=== PATIENT | female | born 1980 | race Caucasian/White ===

== ENCOUNTER 2022-05-20 10:42 | Observation (INO) ==
--- NOTE | 2022-05-10 08:35 | Anesthesiology Consultation ---
Date of Service May 10, 2022 Assessment & Plan (1) Encounter for pre-operative examination: - COVID screening: Per assessment on 05/02: No known COVID-19 positive contacts or current COVID-19 related symptoms. Travel screen negative x2+ weeks. Patient was Covid positive 04/08/22 (home test), PCR test positive 04/14/22 (reports scanned into [email or web address]). Symptoms at time: fatigue, "feverish", chills, congestion > resolved. Pt can proceed as scheduled without additional preop Covid testing or additional Covid contact precautions per 90 days protocol. - Check test AM DOS Chart Review Chart Review: Acceptable Risk for Surgery and Patient NOT seen in Pre Admission Testing History Surgery Operation Date: 05/20/22 09:50 Proposed Procedures p Cystoscopy, Laparoscopic Removal of the Uterus and Both Fallopain Tubes, Possible Removal of One or Both Ovaries (If Indicated) - Irish Tyler MD, FACOG Height/Weight Height: 5 ft 6 in Weight: 67.132 kg Allergies Allergy/AdvReac Type Severity Reaction Status Date / Time Sulfa (Sulfonamide Allergy Mild Nausea Verified 05/06/22 09:18 Antibiotics) chloraprep AdvReac Mild Rash Uncoded 05/10/22 08:31 Medications Home Medications Medication Instructions Recorded Confirmed Last Taken ibuprofen 600 mg tablet 600 mg PO TID PRN Pain 01/31/22 05/06/22 Unknown levonorgestrel 20 mcg/24 hours (7 20 mcg intrauterine DAILY 01/31/22 05/06/22 Unknown yrs) 52 mg intrauterine device (Mirena) Past Medical History Medical History (Updated 05/10/22 @ 08:33 by Estefany Childress) Bulging lumbar disc L5-S1 Follows Dr. Harris History of COVID-19 Covid positive 04/08/22 (home test), PCR test positive 04/14/22 (reports scanned into [email or web address]). Symptoms at time: fatigue, "feverish", chills, congestion > resolved. Uterine leiomyoma Past Family History Family History Denies family history of Ovarian cancer Breast cancer Colorectal cancer Past Surgical History Surgical History H/O LEEP 21 yrs old Hx of wisdom tooth extraction Social History Smoking Status: Never smoker Do You Dip or Chew Tobacco: No Hx Alcohol Use: Yes Alcohol type: beer, wine and hard liquor alcohol intake frequency: a few times a month Hx Substance Use: No substance use type: does not use Lab Results Anesthesia Preop Results Results Anesthesia Widget: WBC 7.47 K/ul (4.8-10.8) 05/06/22 Hgb 14.0 g/dl (12.0-16.0) 05/06/22 Hct 42.5 % (34.1-44.9) 05/06/22 Plt 356 K/uL (130-400) 05/06/22 Na 139 mmol/L (136-145) 05/06/22 K 4.6 mmol/L (3.5-5.1) 05/06/22 Cl 106 mmol/L (98-107) 05/06/22 CO2 26 mmol/L (21-32) 05/06/22 BUN 10 mg/dl (6-23) 05/06/22 Creat 0.71 mg/dl (0.6-1.2) 05/06/22 Glucose Level 90 mg/dl (70-99(Fasting)) 05/06/22
[~2022-05-20 10:42] MED LIST: ACETAMINOPHEN 1000 MG/100 ML IV IV ONE; LACTATED RINGER'S 1,000 ML IV SCH; LR 15ML/HR IV SCH; PHENAZOPYRIDINE HCL 100 MG TAB PO SCH; SUGAMMADEX SODIUM 200 MG/2 ML VIAL IV ONE; ceFAZolin 2000MG 2,000 MG/15 ML SYR IV SCH
[2022-05-20] MEDS ORDERED: MIDAZOLAM HCL 1 MG/ML 2ML VIAL ONE (10:56)
[2022-05-20] MEDS ORDERED: fentaNYL citrate 100 MCG/2 ML VIAL ONE ×3 (10:56→15:42)
[2022-05-20] MEDS ORDERED: PROPOFOL IV EMULSION 10 MG/ML 20 ML VIAL IV ONE (11:50)
[2022-05-20] MEDS ORDERED: DEXAMETHASONE SOD INJ 4 MG/ML VIAL ONE (11:50)
[2022-05-20] MEDS ORDERED: ONDANSETRON INJ 2 MG/ML 2 ML VIAL ONE (11:50)
[2022-05-20] MEDS ORDERED: ROCURONIUM BROMIDE 10 MG/ML 5 ML VIAL IV ONE ×4 (11:50→15:07)
[2022-05-20] MEDS ORDERED: KETOROLAC 30 MG/ML VIAL ONE (11:50)
[2022-05-20] MEDS ORDERED: LIDOCAINE 2% MPF LOCAL 5 ML VIAL INFIL ONE (11:50)
[2022-05-20] MEDS ORDERED: SCOPOLAMINE 1 MG TDSY TD ONE (11:59)
[2022-05-20] MEDS ORDERED: ATROPINE SULFATE 0.1 MG/ML 10ML SYR IV PRN (12:00)
[2022-05-20] MEDS ORDERED: ePHEDrine sulfate 50 MG/ML AMP IV PRN (12:00)
[2022-05-20] MEDS ORDERED: ONDANSETRON INJ 2 MG/ML 2 ML VIAL IV PRN ×3 (12:00→20:15)
--- NOTE | 2022-05-20 12:23 | History & Physical Bridge Note ---
Date of Service May 20, 2022 History & Physical Bridge Note I have examined the patient, reviewed the History & Physical and in the interval since the performance of the History & Physical I have noted the following changes of clinical significance: possible supra cervical hysterectomy
[2022-05-20] MEDS ORDERED: BUPIVACAINE 0.5 % 5 MG/1 ML MPF 30ML VIAL ONE (13:03)
[2022-05-20] MEDS ORDERED: PHENYLEPHRINE 100MCG/ML 5ML SYR ONE (13:25)
[2022-05-20] MEDS ORDERED: TISSEEL FIBRIN SEALANT 4ML TOP ONE (13:50)
[2022-05-20] MEDS ORDERED: ePHEDrine sulfate 50 MG/ML SYR ONE (13:56)
[2022-05-20] MEDS ORDERED: oxyCODONE/ACETAMINOPHEN 5mg/325mg TAB PO PRN ×2 (15:35)
[2022-05-20] MEDS ORDERED: IBUPROFEN 600 MG TAB PO PRN (15:35)
--- NOTE | 2022-05-20 15:41 | Operative Report ---
PG Post Operative Report Pre & Post Diagnosis Operation Date: 05/20/22 12:10 Pre-Op Diagnosis: Uterine Fibroid Post-Op Diagnosis: Uterine Fibroid I identified the patient and participated in the time-out.: Yes Procedure Operation Date: 05/20/22 12:10 Actual Procedures p Robotic Assisted Laparoscopic Supracervical Hysterectomy, Bilateral Salpingectomy using Excite Procedure, Cystoscopy, Removal Intrauterine device(Not Applicable) - Irish Tyler MD, FACOG Surgeon Irish Tyler MD, FACOG Powdered Sugar Pulverizer Operator Dr Herrera Estimated Blood Loss 15 Findings Consistent with Post-Op Diagnosis Specimens Uterus bilateral fallopian tubes Description of Procedure Patient was given a general anesthetic, prepped and draped in dorsal lithotomy position in yellow fin monica stirrups. Care was taken to position the legs and arms properly with no excess pressure on any area. Pre-operative antibiotics were given and SCDs applied earlier. Villa catheter was inserted into her bladder, V-Care manipluator was placed in the uterus. IUD was extracted from the lower uterine segment. Gloves were changed and then a supra-umbilical incision was made with scalpel, using Marilee technique, we dissected through the subcutaneous fat, fascia, split the rectus muscles and then entered the peritoneal cavity. Blunt tip Marilee Trochar then inserted and balloon inflated to stabilize the port. CO2 gas was then used to insufflate the peritoneal cavity. Findings. Benign-appearing massively enlarged fibroid uterus Deep tendelenberg position was obtained. 2 robotic ports were then placed, one on the left, one on the right side under direct visualization. 11mm bladeless accessory port placed in left upper quadrant under direct visualization. Robot docked. Arm #1 Bipolar fenestrated, arm #3 Monopolar Chrissy. Fallopian tubes were identified and removed using the monoplar chrissy to dissect them away from their attachments and removed thru the accessory port. Ureter was identified on each side and followed a normal course. Distal to the left ovary, the blood supply was coagulated with the bipolar fenestrated and then cut with Chrissy. We were well away from the ureter. Round ligament was coagulated and then cut. Uterine vessels were then skeletonized, bladder flap was sharply dissected away with chrissy. Uterine vessels were then coagulated close to the cervix staying away from the left ureter. Vessels then cut. Exact same process was repeated on the right side taking note of the location of the right ureter. Cervical amputation was then performed with the monopolar chrissy using judicious energy, we left ample amount of cervical stump specimen was placed in the upper quadrant Instrument exchange then occurred. Arm #1Cobra Grasper, Arm # 3 became the LUIS needle passenger coach driver. 12 inch 2-0 V-Lock 90 day suture was placed through the accessory port. stump was closed from left to right, then back taking at least 1cm full thickness bites of cervix. Suture was cut so there was no tail, needle removed through the accessory port. Generous irrigation and suction, hemostasis excellent, Tisseal applied to pedicles. Cystoscopy performed and no injury to the bladder, no sutures noted, good strong jets were noted from both right and left ureter openings. Cystoscope removed, bladder drained. Robot undocked, instruments removed the umbilical port was removed and a 15 mm umbilical port was placed large surgical bag was then placed in the peritoneal cavity specimen was grasped that is the supracervical uterine specimen and placed into the bag bag was then brought to the umbilicus Jeramie retractor was then placed we then performed the excite procedure taking care not to perforate the bag and removing the specimen while confined in the bag maintaining the pneumoperitoneum. After bringing it out and multiple strips the entire specimen was removed it was done using several scalpels and straight clamps. This stage then the Jeramie and the bag were removed gas allowed to escape ports removed incisions injected with 0.5% Marcaine careful closure of the fascia and the umbilicus with 0-vicryl and a deep stitch into the accessory port with 0-Vicryl. 4-0 subcuticular skin closures on all incisions, dermabond apllied. Sponge and instrument counts correct. I attest to the content of the Intraoperative Record and any orders documented therein. Any exceptions are noted below. DEBRANDER Major Procedure Codes Hysterectomy 42009 TLH >250g +S/O
[2022-05-20] MEDS ORDERED: LACTATED RINGER'S 1,000 ML IV SCH (15:45)
[2022-05-20] MEDS: fentaNYL citrate 100 MCG/2 ML VIAL IV PRN ×3 (15:58→16:17)
[2022-05-20] MEDS ORDERED: CHECK SCOPOLAMINE PATCH PLACEMENT SCH (16:00)
--- NOTE | 2022-05-20 16:35 | Anesthesiology Progress Note ---
Date of Service May 20, 2022 Anesthesia Post Procedure Vital Signs Vital Signs: Temp Pulse Pulse Resp BP Pulse Ox O2 Del Method 05/20/22 16:30 77 12 101/60 92 Room Air 05/20/22 16:20 77 12 100/62 95 Room Air 05/20/22 16:10 76 12 106/61 95 Room Air 05/20/22 16:00 79 12 110/64 96 Room Air 05/20/22 15:50 81 12 106/65 95 Room Air 05/20/22 15:46 97.3 F L 95 H 16 109/69 96 Room Air 05/20/22 11:26 98.2 F 78 20 125/81 97 Room Air Pain Intensity Abdomen: Pain Intensity: 3 Transfer of Care Handoff Completed per policy Notes Mental Status: alert / awake / arousable and participated in evaluation Patient Amnestic to Procedure: Yes Nausea / Vomiting: adequately controlled Pain: adequately controlled Airway Patency, RR, SpO2: stable & adequate BP & HR: stable & adequate Hydration State: stable & adequate Anesthetic Complications: no major complications apparent and Pt Satisfied with anesthetic care
[2022-05-20] MEDS ORDERED: MEPERIDINE HCL 50 MG/ML CARP IV PRN (20:15)
[2022-05-20] MEDS ORDERED: ACETAMINOPHEN 325 MG TAB PO PRN (20:15)
[2022-05-20] MEDS ORDERED: KETOROLAC 30 MG/ML VIAL IV PRN (20:15)
[2022-05-20] MEDS: oxyCODONE/ACETAMINOPHEN 5mg/325mg TAB PO PRN (21:49)
[2022-05-20] MEDS: LACTATED RINGER'S 1,000 ML IV SCH (22:09)
[2022-05-21] MEDS: IBUPROFEN 600 MG TAB PO PRN ×3 (01:29→10:03)
[2022-05-21] MEDS: oxyCODONE/ACETAMINOPHEN 5mg/325mg TAB PO PRN ×3 (01:45→10:04)
[2022-05-21] MEDS: LACTATED RINGER'S 1,000 ML IV SCH (05:35)
[2022-05-21 06:58] LABS: Basophils # (auto) 0.04 K/uL (0-0.2); Basophils % (auto) 0.3 %; Eosinophils # (auto) 0.03 K/uL (0-0.50); Eosinophils % (auto) 0.2 %; Hematocrit (blood only) 36.2 % (34.1-44.9); Hemoglobin 11.6 g/dl (12.0-16.0); Immature Granulocytes # (auto) 0.06 K/uL (0.00-0.02); Immature Granulocytes % (auto) 0.4 %; Lymphocytes # (auto) 1.88 K/uL (1.2-3.4); Lymphocytes % (auto) 13.9 %; Mean Corpuscular Hemoglobin 28.7 pg (25.0-34.0); Mean Corpuscular Volume 89.6 fL (80.0-100.0); Mean Platelet Volume 9.5 fL (9.4-12.3); Monocytes # (auto) 0.98 K/uL (0.24-0.82); Monocytes % (auto) 7.2 %; Neutrophils # (auto) 10.58 K/uL (1.4-6.5); Platelet Count 274 K/uL (130-400); RDW Coefficient of Variation 12.7 % (11.5-14.5); RDW Standard Deviation 41.8 fL (36.4-46.3); Red Blood Count 4.04 M/uL (3.93-5.22); White Blood Count 13.57 K/ul (4.8-10.8)
--- NOTE | 2022-05-21 07:23 | Gynecologic Progress Note ---
Date of Service May 21, 2022 Assessment & Plan (1) Pelvic pain: Plan: Postop day #1 we did keep the patient last night as she was the last case she also had significant nausea after the surgery and her surgery was for an enlarged uterus. At this stage she is doing quite well she is passing flatus voiding well her pain is controlled and her nausea is controlled she has no extremity pain I reviewed discharge instructions with her and she will be discharged this morning Admission and Anticipated Discharge Date Admission Date: May 20, 2022 Review of Systems Constitutional: as per Subjective / HPI Physical Exam Constitutional: WD/WN, vitals as above well developed and well nourished Respiratory: normal respiratory effort, lungs clear to auscultation normal respiratory effort Cardiovascular: RRR, no murmur, no edema Gastrointestinal (Abdomen): normal bowel sounds, soft, nontender, no hepatosplenomegaly Results & Data ([facility]) Vital Signs (Past 12 Hours) Vital Signs Temp Pulse Resp BP Pulse Ox O2 Del Method 05/21/22 05:00 98.1 F 58 L 16 96/59 L Room Air 05/21/22 00:00 97.9 F 76 16 93/55 L Room Air 05/20/22 20:00 Room Air 05/20/22 20:00 98.2 F 82 16 106/64 99 Room Air 05/20/22 19:57 78 18 106/61 98 PG Care Time/CCT Total # of Minutes Spent Total Time Spent with Patient: Total time spent is greater than 50% in coordination of care (as documented) at patient's floor/unit and/or counseling patient: Coding Level of Care Code None Diagnoses Pelvic pain R10.2
--- NOTE | 2022-05-23 17:25 | Discharge Summary ---
Date of Service May 23, 2022 Admission Exam (Per Admitting) Constitutional WD/WN, vitals as above well developed and well nourished Respiratory normal respiratory effort, lungs clear to auscultation normal respiratory effort Cardiovascular RRR, no murmur, no edema Gastrointestinal (Abdomen) normal bowel sounds, soft, nontender, no hepatosplenomegaly Discharge Data Procedures Performed Operation Date: 05/20/22 12:10 Actual Procedures p Robotic Assisted Laparoscopic Supracervical Hysterectomy, Bilateral Salpingectomy using Excite Procedure, Cystoscopy, Removal Intrauterine device(Not Applicable) - Irish Tyler MD, FACOG Hospital Course (1) Pelvic pain: Postop day #1 we did keep the patient last night as she was the last case she also had significant nausea after the surgery and her surgery was for an enlarged uterus. At this stage she is doing quite well she is passing flatus voiding well her pain is controlled and her nausea is controlled she has no extremity pain I reviewed discharge instructions with her and she will be discharged this morning Coding Level of Care Code None Diagnoses Pelvic pain R10.2
== END 2022-05-21 12:47 | disposition home or self-care (01) ==
LOC: 4E1 10:42 → ASU 10:42